=== PATIENT | female | born 1955 | race African-American/Black ===

== ENCOUNTER 2022-07-22 17:51 | Emergency (ER) | payer MEDICARE ==
[~2022-07-22] VITALS: Ht 154.9 cm; Wt 68.0 kg
--- NOTE | 2022-07-22 17:55 | NUR ---
BIBA TO BED 5
[2022-07-22 17:57] VITALS: BP 193/73
--- NOTE | 2022-07-22 18:23 | NUR ---
67YO FEMALE PT BIBA HOME C/O HIGH BS XTODAY. PER [facility], FAMILY CALLED DUE TO PT ALOC - BS 540 AT SCENE . AT ARRIVAL , PT AAOX0 W/ BS 463 . DENIES DIZZINESS, N/V/D, CHEST PAIN , SOB , FEVER OR CHILLS. ABLE TO FOLLOW SIMPLE DIRECTION. ON [employer]. BED AT LOWEST POSITION, BED RAILS UPX2. HX: HTN, DIABETES, HEART FAILURE. NKA
[2022-07-22] MEDS ORDERED: NACL 0.9% 2,000 ML IV ONE (18:25)
[2022-07-22 18:46] LABS: BASOPHILS # (AUTO) 0.1 K/uL (0.00-0.22); BASOPHILS % (AUTO) 1.4 % (0.0-2.0); EOSINOPHILS # (AUTO) 0.1 K/uL (0-0.4); EOSINOPHILS % (AUTO) 2.3 % (0.0-4.0); HEMATOCRIT 43.8 % (36-48); HEMOGLOBIN 14.7 g/dL (12.0-16.0); LYMPHOCYTES # (AUTO) 1.8 K/uL (2.5-16.5); LYMPHOCYTES % (AUTO) 35.4 % (20.5-51.1); MEAN CORPUSCULAR HEMOGLOBIN 28 pg (27-31); MEAN CORPUSCULAR HGB CONC 34 g/dL (33-37); MEAN CORPUSCULAR VOLUME 83.9 fL (80-94); MONOCYTES # (AUTO) 0.4 K/uL (0.8-1.0); MONOCYTES % (AUTO) 8.3 % (1.7-9.3); NEUTROPHILS # (AUTO) 2.6 K/uL (1.8-7.7); NEUTROPHILS % (AUTO) 52.6 % (42.2-75.2); PLATELET COUNT (AUTO) 130 K/uL (140-450); RED BLOOD CELL COUNT(AUTO) 5.22 MIL/uL (4.20-5.40)
[2022-07-22 19:14] LABS: APPEARANCE,URINE CLEAR (CLEAR); BILIRUBIN,URINE NEGATIVE (NEGATIVE); BLOOD, URINE 1+ (NEGATIVE); COLOR,URINE YELLOW (YELLOW); LEUKOCYTE ESTERASE ,URINE NEGATIVE (NEGATIVE); NITRITE, URINE NEGATIVE (NEGATIVE); PH,URINE 6.5 (5.0-9.0); UGLUCOSE 3+ (NEGATIVE)
--- NOTE | 2022-07-22 19:15 | NUR ---
MD MADE AWARE OF PT BP. NO CHANGE IN ORDERS
[2022-07-22 19:16] LABS: ALBUMIN 3.6 g/dL (3.4-5.0); ANION GAP 10.3 (8-16); ASPARTATE AMINOTRANSFERASE 46 U/L (15-37); CARBON DIOXIDE 27.5 mmol/L (21-32); CHLORIDE 101 mmol/L (98-107); GFR ARICAN-AMERICAN 71 mL/min (>90); POTASSIUM 3.8 mmol/L (3.5-5.1); SODIUM SERUM 135 mmol/L (136-145); TOTAL BILIRUBIN 0.5 mg/dL (0.0-1.0); UREA NITROGEN, BLOOD 14 mg/dL (7-18)
[2022-07-22 19:22] LABS: GLUCOSE 437 mg/dL (74-106)
[2022-07-22 19:25] LABS: SALICYLATE < 2.8 mg/dL (2.8-20.0)
[2022-07-22 19:27] LABS: BARBITURATE, URINE NEGATIVE ng/ml (NEG <=200); BENZODIAZEPINE, URINE NEGATIVE ng/mL (NEG <=200); CANNABINOID, URINE NEGATIVE ng/mL (NEG <=50); COCAINE, URINE NEGATIVE ng/mL (NEG <=300); OPIATE, URINE NEGATIVE ng/mL (NEG <=2000); PHENCYCLIDINE SCREEN,URINE NEGATIVE ng/mL (NEG <=25)
[2022-07-22 19:27] LABS: ACETAMINOPHEN < 0.5 ug/ml (10-30)
--- NOTE | 2022-07-22 19:31 | NUR ---
REPORT GIVEN TO DARSHAN RICH. TRANSFER OF CARE AT THIS TIME
[2022-07-22 19:33] LABS: WBC,URINE NONE SEEN /HPF (0-5)
--- NOTE | 2022-07-22 19:48 | NUR ---
ASSISTED ONTO BEDPAN
[2022-07-22] MEDS ORDERED: ASPIRIN 325 MG TAB PO ONE (19:50)
--- NOTE | 2022-07-22 20:22 | NUR ---
PT PULLED IV OUT AGAIN. [facility]
[2022-07-22] MEDS ORDERED: ZIPRASIDONE MESYLATE 20 MG/ML VIAL IM ONE (21:45)
[2022-07-22] MEDS ORDERED: WATER STERILE 10 ML MC ONE (21:59)
--- NOTE | 2022-07-22 22:00 | NUR ---
HAS BEEN RESTLESS AND CONFUSED, SLIDES TO END OF BED AND STANDS AT FOOT OF BED. LINENS CHANGED, ASSISTED BACK TO BED. MEDICATED ORDERED
--- NOTE | 2022-07-23 | NUR ---
RESTING QUIETLY WITH EYES CLOSED
[2022-07-23] MEDS ORDERED: INSULIN REGULAR, HUMAN 100 UNIT/ML VIAL SUBQ ONE (01:10)
--- NOTE | 2022-07-23 02:00 | NUR ---
AWAKE, CLIMBED OUT OF BED AND ATTEMPTS TO STAND AT BEDSIDE. PT IS UNSTEADY. ASSISTED BACK TO BED AND MADE COMFORTABLE.
[2022-07-23] MEDS ORDERED: hydrALAZINE 25 MG TAB PO STA (02:09)
[2022-07-23] MEDS ORDERED: amLODIPine 5 MG TAB PO ONE (02:40)
[2022-07-23] MEDS ORDERED: hydrALAZINE 10 MG TAB ONE (03:25)
[2022-07-23] MEDS ORDERED: LABETALOL 20 MG/4 ML VIAL IVP ONE (03:30)
--- NOTE | 2022-07-23 03:30 | NUR ---
BP REMAINS HIGH, BG REMAINS HIGH. MEDS ORDERED
[2022-07-23] MEDS ORDERED: INSULIN REGULAR, HUMAN 100 UNIT/ML VIAL IVP ONE ×2 (03:35→09:20)
--- NOTE | 2022-07-23 06:00 | NUR ---
RESTING QUIETLY AT PRESENT
--- NOTE | 2022-07-23 07:24 | NUR ---
REPORT TO LAYLA MONK
--- NOTE | 2022-07-23 07:30 | NUR ---
RECEIVED REPORT FROM DARSHAN RICH AND [facility]
[2022-07-23 08:34] VITALS: BP 158/86
--- NOTE | 2022-07-23 09:00 | NUR ---
PT IN BED RESTING COMFORTABLY. VSS STABLE AT THIS TIME
[2022-07-23] MEDS ORDERED: NACL 0.9% 250 ML IV ONE (09:20)
--- NOTE | 2022-07-23 10:07 | NUR ---
[facility] AT BEDSIDE FOR TRANSPORT
--- NOTE | 2022-07-23 10:08 | NUR ---
GAVE REPORT TO LAYLA EASTMAN AT [facility]. PT WILL BE GOING TO BED 307
--- NOTE | 2022-07-23 11:30 | NUR ---
CHING CATH EMPTIED. 600 ML REMOVED. SMALL AMOUNT OF BLOOD COLORED BM.
--- NOTE | 2022-08-01 12:08 | NUR ---
LATE ENTRY --CONFIRMED WITH PRIMARY NURSE, NS INFUSION STARTED 07/22/22 AT 1830 WAS COMPLETED SAME DAY AT 1930
== END 2022-07-23 10:07 | disposition short-term general hospital (02) ==
LOC: MED 17:51
DX: R41.82 Altered mental status, unspecified (principal); Z20.822 Contact with and (suspected) exposure to COVID-19; E11.65 Type 2 diabetes mellitus with hyperglycemia
CPT/HCPCS: 36415; 36600; 70450; 70496; 70498; 71045; 80053; 80305; 81001; 82803; 84484; 85025; 87426; 93005; 96361; 96372; 96374; 96375; 96376; 99291; G0480; J1815; J3486; J3490; J7030; Q0092; Q9967; 99285